=== PATIENT | female | born 1930 | race Caucasian/White ===

== ENCOUNTER 2017-05-16 01:54 | Emergency (ER) | payer OTHER ==
[~2017-05-16] VITALS: Ht 175.3 cm; Wt 79.4 kg
[~2017-05-16 01:54] MED LIST: ACET500 PO; CELE100 PO; CHOL10002 PO; CHOLESTEROL MED; DIGO.125 PO; DOCU100 PO; GABA300 PO; LIDO5TP TOP; METO25; OXYACE5T PO; Percocet 5-3251 EACH PO; RED RICE; SIME80CH PO; STOOL SOFTENER100 MG PO; TOCO400 PO; VITAMINS; Valium5 MG PO; WARF5 PO; XARELTO10 MG; XARELTO20 MG PO
[2017-05-16 03:42] LABS: BASOPHILS ABSOLUTE AUTO 0.07 K/mm3 (0.00-0.23); BASOPHILS PERCENT AUTO 1 % (0-2); EOSINOPHILS ABSOLUTE AUTO 0.08 K/mm3 (0.00-0.68); EOSINOPHILS PERCENT AUTO 1 % (0-6); Hematocrit 42.9 % (33.0-51.0); Hemoglobin 13.6 g/dL (11.5-16.0); IMMATURE GRAN ABSOLUTE AUTO 0.02 K/mm3 (0.00-0.10); IMMATURE GRAN PERCENT AUTO 0 % (0-1); LYMPHOCYTES ABSOLUTE AUTO 1.32 K/mm3 (0.84-5.20); LYMPHOCYTES PERCENT AUTO 16 % (21-46); MONOCYTES ABSOLUTE AUTO 1.07 K/mm3 (0.16-1.47); MONOCYTES PERCENT AUTO 13 % (4-13); Mean Corpuscular HGB 29.2 pg (26.0-34.0); Mean Corpuscular HGB Conc 31.7 g/dL (31.5-36.5); Mean Corpuscular Volume 92 fL (80-100); Mean Platelet Volume 11.3 fL (9.1-12.4); NEUTROPHILS ABSOLUTE AUTO 5.54 K/mm3 (1.96-9.15); NEUTROPHILS PERCENT AUTO 68 % (41-73); Platelet Count 207 K/mm3 (150-400); RDW Coefficient Variation 14.1 % (11.7-14.2); RDW Standard Deviation 47.9 fL (35.1-46.3); Red Blood Cell Count 4.65 M/mm3 (3.80-5.20)
[2017-05-16 04:01] LABS: Alanine Aminotransfer (ALT/SGP 19 U/L (12-78); Albumin, Blood 3.6 g/dL (3.4-5.0); Albumin/Globulin Ratio 0.9 (0.8-1.8); Alk Phos 105 U/L (50-136); Anion Gap 7 mmol/L (6-16); Aspartate Aminotrans (AST/SGOT 15 U/L (12-37); Bilirubin, Total 1.4 mg/dL (0.1-1.0); Blood Urea Nitrogen 13 mg/dL (8-24); Bun/Creatinine Ratio 21.5 (12.0-20.0); CO2, Blood 28 mmol/L (21-32); Calcium, Blood 9.1 mg/dL (8.5-10.1); Chloride, Blood 102 mmol/L (98-108); Creatinine, Blood 0.61 mg/dL (0.40-1.00); Globulin, Blood 3.8 g/dL (2.2-4.0); Glomerular Filtration Rate >60 (60-); Glucose, Blood 98 mg/dL (70-99); Potassium, Blood 4.3 mmol/L (3.5-5.5); Sodium, Blood 137 mmol/L (136-145); Total Protein, Blood 7.4 g/dL (6.4-8.2)
[2017-05-16] MEDS ORDERED: Colace100 MG PO (05:02)
[2017-05-16] MEDS ORDERED: Miralax17 GM PO (05:02)
== END 2017-05-16 07:55 | disposition home or self-care (01) ==
LOC: ER 01:54
PROVIDERS: Emergency Medicine
DX: R10.9 Unspecified abdominal pain (principal); I10 Essential (primary) hypertension; I48.91 Unspecified atrial fibrillation
CPT/HCPCS: 36415; 74177; 80053; 85025; 96374; 99284; J1885; Q9967

== ENCOUNTER 2019-08-30 09:27 | Emergency (ER) | payer OTHER ==
[~2019-08-30] VITALS: Ht 172.7 cm; Wt 70.3 kg
[~2019-08-30 09:27] MED LIST changes: +Colace100 MG PO; +METO25 PO; +Miralax17 GM PO
[2019-08-30] MEDS ORDERED: BENADRYL25 MG PO (09:41)
[2019-08-30] MEDS ORDERED: Loratadine10 MG PO (09:41)
[2019-08-30] MEDS ORDERED: CORTISONE60 GM TOP (09:41)
[2019-08-30] MEDS ORDERED: CARB10OTL BOTHEARS (09:42)
[2019-08-30] MEDS ORDERED: FURO20 PO (09:43)
[2019-08-30] MEDS ORDERED: PROBIOTIC1 EA12 PO (09:43)
[2019-08-30] MEDS ORDERED: LIDO700A20 TOP ×2 (09:44→12:13)
[2019-08-30] MEDS ORDERED: SIME80CH PO (09:44)
[2019-08-30] MEDS ORDERED: POTCHL20ER PO (09:45)
[2019-08-30] MEDS ORDERED: MELA3 PO (09:45)
[2019-08-30] MEDS ORDERED: MIRALAX17 GM PO (09:45)
[2019-08-30] MEDS ORDERED: ROXICODONE5 MG PO (09:46)
[2019-08-30] MEDS ORDERED: ASCO500 PO (09:46)
[2019-08-30] MEDS ORDERED: TOCO1000 PO (09:47)
[2019-08-30 10:14] LABS: BASOPHILS ABSOLUTE AUTO 0.08 K/mm3 (0.00-0.23); BASOPHILS PERCENT AUTO 1 % (0-2); EOSINOPHILS ABSOLUTE AUTO 0.12 K/mm3 (0.00-0.68); EOSINOPHILS PERCENT AUTO 2 % (0-6); Hematocrit 40.5 % (33.0-51.0); Hemoglobin 12.8 g/dL (11.5-16.0); IMMATURE GRAN ABSOLUTE AUTO 0.01 K/mm3 (0.00-0.10); IMMATURE GRAN PERCENT AUTO 0 % (0-1); LYMPHOCYTES ABSOLUTE AUTO 1.19 K/mm3 (0.84-5.20); LYMPHOCYTES PERCENT AUTO 19 % (21-46); MONOCYTES ABSOLUTE AUTO 0.94 K/mm3 (0.16-1.47); MONOCYTES PERCENT AUTO 15 % (4-13); Mean Corpuscular HGB 29.9 pg (26.0-34.0); Mean Corpuscular HGB Conc 31.6 g/dL (31.5-36.5); Mean Corpuscular Volume 95 fL (80-100); Mean Platelet Volume 10.8 fL (9.1-12.4); NEUTROPHILS ABSOLUTE AUTO 3.79 K/mm3 (1.96-9.15); NEUTROPHILS PERCENT AUTO 62 % (41-73); Platelet Count 207 K/mm3 (150-400); RDW Coefficient Variation 14.1 % (11.7-14.2); Red Blood Cell Count 4.28 M/mm3 (3.80-5.20); White Blood Cell Count 6.13 K/mm3 (4.00-11.30)
[2019-08-30 10:31] LABS: Alanine Aminotransfer (ALT/SGP 18 U/L (12-78); Albumin, Blood 3.4 g/dL (3.4-5.0); Albumin/Globulin Ratio 0.9 (0.8-1.8); Alk Phos 114 U/L (50-136); Anion Gap 4 mmol/L (6-16); Aspartate Aminotrans (AST/SGOT 18 U/L (12-37); Bilirubin, Total 1.4 mg/dL (0.1-1.0); Blood Urea Nitrogen 15 mg/dL (8-24); Bun/Creatinine Ratio 23.5 (12.0-20.0); CO2, Blood 30 mmol/L (21-32); Chloride, Blood 104 mmol/L (98-108); Creatinine, Blood 0.64 mg/dL (0.40-1.00); Globulin, Blood 3.6 g/dL (2.2-4.0); Glomerular Filtration Rate >60 (60-); Glucose, Blood 93 mg/dL (70-99); Potassium, Blood 4.2 mmol/L (3.5-5.5); Sodium, Blood 138 mmol/L (136-145); Troponin I <0.015 ng/mL (0.000-0.040)
[2019-08-30 11:56] LABS: Source, Urine Clean Catch
[2019-08-30 12:00] LABS: Bilirubin, Urine Neg (Neg); Blood, Urine 4+ (Neg); Glucose Qualitative, Urine Neg (Neg); Ketones, Urine Neg (Neg); Leukocyte Esterase, Urine 1+ (Neg); Nitrite, Urine Neg (Neg); Protein, Urine 1+ (Neg); Urobilinogen, Urine NORM (Normal)
[2019-08-30] MEDS ORDERED: COLACE100 MG PO (12:13)
[2019-08-30] MEDS ORDERED: Norco 5-325 Ta1 EACH PO (12:13)
[2019-08-30 12:20] LABS: Appearance, Urine Hazy (Clear); Bacteria Not Seen /hpf; Color, Urine Yellow (P-Yellow); Squamous Epithelial Cells Few /hpf (Few); White Blood Cells, Urine 0-2 /hpf (0-5)
== END 2019-08-30 13:03 | disposition home or self-care (01) ==
LOC: ER 09:27
PROVIDERS: Physician Assistant
DX: M80.88XA Other osteoporosis with current pathological fracture, vertebra(e), initial encounter for fracture (principal); Z88.2 Allergy status to sulfonamides; Z91.018 Allergy to other foods; Z88.8 Allergy status to other drugs, medicaments and biological substances; Z79.899 Other long term (current) drug therapy; I10 Essential (primary) hypertension; I48.91 Unspecified atrial fibrillation; E78.5 Hyperlipidemia, unspecified
CPT/HCPCS: 74176; 80053; 81001; 83690; 84484; 85025; 87086; 93005; 93010; 96374; 96376; 99284-25; J3010

== ENCOUNTER → 2020-09-16 | Outpatient (CLI) | payer OTHER ==
[~2020-09-16] MED LIST changes: +ASCO500 PO; +BENADRYL25 MG PO; +CARB10OTL BOTHEARS; +COLACE100 MG PO; +CORTISONE60 GM TOP; +FURO20 PO; +LIDO700A20 TOP; +Loratadine10 MG PO; +MELA3 PO; +METPRE4DP PO; +MIRALAX17 GM PO; +Norco 5-325 Ta1 EACH PO; +OXYC5 PO; +POTCHL20ER PO; +PROBIOTIC1 EA12 PO; +ROXICODONE5 MG PO; +TOCO1000 PO
[2020-09-16 09:47] LABS: Appearance, Urine Clear (Clear); Bilirubin, Urine Neg (Neg); Blood, Urine 4+ (Neg); Color, Urine Yellow (P-Yellow); Glucose Qualitative, Urine Neg (Neg); Ketones, Urine Neg (Neg); Leukocyte Esterase, Urine Neg (Neg); Nitrite, Urine Neg (Neg); Protein, Urine 1+ (Neg); Urobilinogen, Urine NORM (Normal)
[2020-09-16 10:28] LABS: Bacteria Not Seen /hpf; Calcium Oxalate Crystals Mod /hpf; Squamous Epithelial Cells Few /hpf (Few); Transitional Epithelial Cells Rare /hpf (0-Rare)
== END ==
LOC: LAB 08:50 → LAB SHORT 08:50
PROVIDERS: Internal Medicine
DX: D72.828 Other elevated white blood cell count (principal); R53.83 Other fatigue; Z88.2 Allergy status to sulfonamides; Z91.018 Allergy to other foods; Z88.8 Allergy status to other drugs, medicaments and biological substances
CPT/HCPCS: 81001

== ENCOUNTER 2020-10-12 03:49 | Emergency (ER) | payer OTHER ==
[~2020-10-12] VITALS: Ht 172.7 cm; Wt 68.0 kg
[~2020-10-12 03:49] MED LIST changes: -METPRE4DP PO; -OXYC5 PO
[2020-10-12] MEDS ORDERED: METPRE4DP PO (04:41)
[2020-10-12] MEDS ORDERED: OXYC5 PO (04:41)
== END 2020-10-12 05:20 | disposition home or self-care (01) ==
LOC: ER 03:49
DX: M54.42 Lumbago with sciatica, left side (principal); I10 Essential (primary) hypertension; I48.91 Unspecified atrial fibrillation; M81.0 Age-related osteoporosis without current pathological fracture; Z79.899 Other long term (current) drug therapy
CPT/HCPCS: 99283; A9270; J7512